=== PATIENT | female | born 1995 | race Caucasian/White ===

== ENCOUNTER 2018-05-02 20:31 | Emergency (ER) | payer SELFPAY ==
[~2018-05-02] VITALS: Ht 162.6 cm; Wt 69.9 kg
[2018-05-02 20:37] VITALS: BP 147/92
[2018-05-02] MEDS ORDERED: FAMOTIDINE 20 MG TABLET PO ONE (21:00)
[2018-05-02] MEDS ORDERED: FAMOTIDINE 20 MG TABLET ONE (21:07)
== END 2018-05-02 21:33 | disposition home or self-care (01) ==
LOC: ED 21:32
DX: L50.9 Urticaria, unspecified (principal)
CPT/HCPCS: 99283; J7512

== ENCOUNTER 2018-07-03 02:57 | Emergency (ER) | payer OTHER ==
[~2018-07-03] VITALS: Ht 165.1 cm; Wt 69.0 kg
--- NOTE | 2018-07-03 03:15 | NUR ---
FIRST CONTACT WITH PT. PT C/O N/V/D FOR A FEW DAYS AND SORE THROAT SINCE 0AM TODAY. PT'S BOYFRIEND HAS +STREPT NOW. BP/SPO2 MONITORS IN PLACE. CALL LIGHT WITHIN REACH. EDMD AT BEDSIDE TO ASSESS AT THIS TIME.
[2018-07-03] MEDS ORDERED: ONDANSETRON ODT 4 MG ONE (03:21)
[2018-07-03] MEDS ORDERED: PROMETHAZINE 25 MG/ML, 1ML ONE (03:21)
--- NOTE | 2018-07-03 03:27 | NUR ---
PT MEDICATED PER EMAR. PT TOLERATED WELL. PT'S AOX4. RESPS EVEN AND UNLABORED.
[2018-07-03] MEDS ORDERED: PROMETHAZINE 25 MG/ML, 1ML IM ONE (03:30)
[2018-07-03] MEDS ORDERED: ONDANSETRON ODT 4 MG PO ONE (03:30)
[2018-07-03 03:42] LABS: RAPID INFLUENZA A Negative (Negative); RAPID INFLUENZA B Negative (Negative)
[2018-07-03] MEDS ORDERED: DEXAMETHASONE 4 MG TABLET PO ONE (04:00)
[2018-07-03] MEDS ORDERED: DEXAMETHASONE 4 MG TABLET ONE (04:01)
--- NOTE | 2018-07-03 04:05 | NUR ---
PT MEDICATED PER EMAR. PT TOLERATED WELL. PT'S AOX4. RESPS EVEN AND UNLABORED.
[2018-07-03 04:06] VITALS: BP 109/61
--- NOTE | 2018-07-03 04:24 | NUR ---
PT GIVEN DC INSTRUCTIONS AND MEDICATIONS. PT EDUCATED REGARDING DC MEDICATIONS. PT AMB TO DC WITH STEADY GAIT. PT'S AOX4. RESPS EVEN AND UNLABORED. NO ACUTE DISTRESS AT DC.
== END 2018-07-03 04:25 | disposition home or self-care (01) ==
LOC: ED 04:20
DX: J02.8 Acute pharyngitis due to other specified organisms (principal); B34.9 Viral infection, unspecified; R11.2 Nausea with vomiting, unspecified; R19.7 Diarrhea, unspecified; F17.200 Nicotine dependence, unspecified, uncomplicated
CPT/HCPCS: 87081; 87400; 87880; 96372; 99283; J2550; Q0162